=== PATIENT | male | born 1960 | race Hispanic/Latino ===

== ENCOUNTER 2018-05-06 19:49 | Emergency (ER) | payer OTHER ==
[2018-05-06 20:25] VITALS: BMI 31.1
[2018-05-06 20:29] VITALS: BP 130/73; PULSE 75; RESP 18; TEMP 98.4; O2SAT 99
--- NOTE | 2018-05-06 20:57 | ED PDOC ---
Arrival/HPI - General Chief Complaint: Lower Extremity Problem/Injury Time Seen by Provider: 05/06/18 20:33 Historian: Patient - History of Present Illness Narrative History of Present Illness (Text): 05/06/18 20:30 58 year old male, with past medical history of hypertension, presents to the Emergency department complaining of left knee discomfort since Sunday. Patient informs he was [place] his [place] vacation at [employer] [place] [place] when he stepped off the curb and hyperflexed his left knee leading to deformity and discomfort to the left leg. Patient denies hitting his head or losing consciousness. Patient denies any fever, chills, nausea, vomiting, diarrhea, abdominal pain, chest pain, shortness of breath or any other complaints. PMD: Dr. Garcia Time/Duration: < week (Sunday) Symptom Onset: Gradual Symptom Course: Unchanged Quality: Aching Activities at Onset: Light Context: Other (Vacation) Past Medical History - Provider Review Nursing Documentation Reviewed: Yes - Infectious Disease Hx of Infectious Diseases: None - Cardiac Hx Cardiac Disorders: Yes Hx Hypertension: Yes - Pulmonary Hx Respiratory Disorders: No - Neurological Hx Neurological Disorder: No - HEENT Hx HEENT Disorder: No - Renal Hx Renal Disorder: No - Endocrine/Metabolic Hx Endocrine Disorders: No - Hematological/Oncological Hx Blood Disorders: No - Integumentary Hx Dermatological Disorder: No - Musculoskeletal/Rheumatological Hx Musculoskeletal Disorders: Yes Hx Fractures: Yes Other/Comment: HX: LEFT SHOULDER"POPPED OUT OF SOCKET" ARTHROSCOPIC SURGERY TO REPAIR. HX: INTERNALDERAGMENT (LEFT KNEE). HX: STRESS FX. LEFT FOOT. HX: UMBILICAL HERNIA - Gastrointestinal Hx Gastrointestinal Disorders: Yes Hx Gastritis: Yes - Genitourinary/Gynecological Hx Genitourinary Disorders: No - Psychiatric Hx Psychophysiologic Disorder: No Hx Depression: No Hx Substance Use: No - Surgical History Hx Musculoskeletal Surgery: Yes (ARTHROSCOPIC LEFT SHOULDER"IT POPPED OUT") Other/Comment: SEVERAL CYSTS REMOVED FROM ABDOMEN - Anesthesia Hx Anesthesia: Yes Hx Anesthesia Reactions: No Hx Malignant Hyperthermia: No - Suicidal Assessment Feels Threatened In Home Enviroment: No Family/Social History - Physician Review Nursing Documentation Reviewed: Yes Family/Social History: No Known Family HX Smoking Status: Never Smoked Hx Alcohol Use: No Hx Substance Use: No Hx Substance Use Treatment: No Allergies/Home Meds Allergies/Adverse Reactions: Allergies No Known Allergies Allergy (Verified 05/15/14 08:43) Home Medications: Home Meds Medication Instructions Recorded Confirmed Azilsartan Med/Chlorthalidone 1 tab PO DAILY 05/18/17 05/06/18 [Edarbyclor 40-12.5 mg Tablet] Fenofibrate Nanocrystallized 145 mg PO DAILY 05/18/17 05/06/18 [Fenofibrate] Simvastatin 40 mg PO DAILY 05/18/17 05/06/18 amLODIPine [Norvasc] 10 mg PO DAILY 05/18/17 05/06/18 Review of Systems - Physician Review All systems were reviewed & negative as marked: Yes - Review of Systems Constitutional: Normal. absent: Fevers Eyes: Normal ENT: Normal Respiratory: Normal. absent: SOB Cardiovascular: Normal. absent: Chest Pain Gastrointestinal: Normal. absent: Abdominal Pain, Diarrhea, Nausea, Vomiting Genitourinary Male: Normal Musculoskeletal: Other (left knee and leg discomfort) Skin: Normal Neurological: Normal Endocrine: Normal Hemo/Lymphatic: Normal Psychiatric: Normal Physical Exam Vital Signs Reviewed: Yes Vital Signs Temp Pulse Resp BP Pulse Ox 05/06/18 20:28 98.4 F 75 18 130/73 99 Temperature: Afebrile Blood Pressure: Normal Pulse: Regular Respiratory Rate: Normal Appearance: Positive for: Well-Appearing, Non-Toxic, Comfortable Pain Distress: None Mental Status: Positive for: Alert and Oriented X 3 - Systems Exam Head: Present: Atraumatic, Normocephalic Pupils: Present: PERRL Extroacular Muscles: Present: EOMI Conjunctiva: Present: Normal Mouth: Present: Moist Mucous Membranes Neck: Present: Normal Range of Motion Respiratory/Chest: Present: Clear to Auscultation, Good Air Exchange. No: Respiratory Distress, Accessory Muscle Use Cardiovascular: Present: Regular Rate and Rhythm, Normal S1, S2. No: Murmurs Abdomen: No: Tenderness, Distention, Peritoneal Signs Back: Present: Normal Inspection Upper Extremity: Present: Normal Inspection. No: Cyanosis, Edema Lower Extremity: Present: Tenderness, Deformity (step off secondary to partial or complete tear of quadracep tendon. Inable to extend his left leg.). No: Edema Neurological: Present: GCS=15, CN II-XII Intact, Speech Normal Skin: Present: Warm, Dry, Normal Color. No: Rashes Psychiatric: Present: Alert, Oriented x 3, Normal Insight, Normal Concentration Medical Decision Making ED Course and Treatment: 05/06/18 21:04 Impression: 58 year old male presents to the Emergency department complaining of left knee discomfort s/p fall. Differential Diagnosis included but are not limited to: Partial or complete tear of left quadraceps tendon Plan: -- EKG -- Labs -- CXR -- Reassess and disposition Prior Visits: Notes and results from previous visits were reviewed. Progress Notes: 05/06/18 21:03 Discussed case in detail with Dr. Garcia who requests pre-operation labs, EKG, and chest xray. Dr. Garcia states he can see the patient in his office tomorrow morning at 10:00 but the patient should call first. - RAD Interpretation Radiology Orders: 05/06/18 20:58 CXR (PA/LAT) [CHEST TWO VIEWS (PA/LAT)] [RAD] Stat - EKG Interpretation EKG Interpretation (Text): 05/06/18 21:19 EKG: Ordered, reviewed, and independently interpreted the EKG. Rate : 64 BPM Rhythm : NSR Interpretation : No ST-segment elevations or depressions, no T-wave inversions, normal intervals. Interpreted by ED Physician: Yes Type: 12 lead EKG - Scribe Statement The provider has reviewed the documentation as recorded by the Scribe Luis Miguel Mercedes. All medical record entries made by the Scribe were at my direction and personally dictated by me. I have reviewed the chart and agree that the record accurately reflects my personal performance of the history, physical exam, medical decision making, and the department course for this patient. I have also personally directed, reviewed, and agree with the discharge instructions and disposition. Disposition/Present on Arrival - Present on Arrival Any Indicators Present on Arrival: No History of DVT/PE: No History of Uncontrolled Diabetes: No Urinary Catheter: No History of Decub. Ulcer: No History Surgical Site Infection Following: None - Disposition Have Diagnosis and Disposition been Completed?: Yes Diagnosis: Rupture, tendon, quadriceps Disposition: HOME/ ROUTINE Disposition Time: 21:23 Patient Plan: Discharge Condition: GOOD Discharge Instructions (ExitCare): How to Use Crutches, Knee Immobilizer (DC) Additional Instructions: Mr Grimm- Please keep the appointment with Dr Darden tomorrow so he can set you up to have the tendon repair. Best- Dr. Leonides Mensah Forms: [employer] ([employer]), WORK NOTE
[2018-05-06 22:09] LABS: BASO # 0.03 K/mm3 (0.0-2.0); BASO % 0.3 % (0.0-3.0); EOS # 0.4 (0.0-0.7); EOS % 3.5 % (1.5-5.0); GRAN # 7.39 (1.4-6.5); GRAN % 67.3 % (50.0-68.0); HEMOGLOBIN 13.2 g/dL (14.0-18.0); LYMPH # 2.3 (1.2-3.4); LYMPH % 21.4 % (22.0-35.0); MEAN CELL VOLUME 85.8 fl (80.0-105.0); MEAN CORPUSCULAR HEMOGLOBIN 29.7 pg (25.0-35.0); MEAN CORPUSCULAR HGB CONC 34.6 g/dl (31.0-37.0); MEAN PLATELET VOLUME 10.2 fl (7.0-11.0); MONO # 0.8 (0.1-0.6); MONO % 7.5 % (1.0-6.0); RBC 4.45 10^6/uL (3.5-6.1); RED CELL DISTRIBUTION WIDTH 13.8 % (11.5-14.5)
[2018-05-06 22:15] LABS: INR 1.03 (0.93-1.08); PROTHROMBIN TIME 11.7 SECONDS (9.4-12.5)
[2018-05-06 22:17] LABS: ALB/GLOB RATIO 1.6 (1.1-1.8); ALBUMIN 4.3 g/dL (3.0-4.8); ALT/SGPT 30 U/L (7-56); AST/SGOT 38 U/L (17-59); BLOOD UREA NITROGEN 25 mg/dL (7-21); CALCIUM 9.8 mg/dL (8.4-10.5); GFR AFRICAN-AMERICAN > 60; GFR NON-AFRICAN AMERICAN > 60
--- NOTE | 2018-05-07 09:03 | RAD ---
HISTORY: COMPARISON: 05/05/2017. TECHNIQUE: Chest PA and lateral FINDINGS: LINES AND TUBES: None. LUNG AND PLEURA: The lungs are well inflated. There is mild pulmonary venous congestion. No focal consolidation HEART AND MEDIASTINUM: There is mild cardiomegaly. The hilar and mediastinal contours are within normal limits. SKELETAL STRUCTURES: The bony structures are within normal limits for the patient's age. VISUALIZED UPPER ABDOMEN: Normal. OTHER FINDINGS: None. IMPRESSION: Mild cardiomegaly and pulmonary venous congestion. No active pulmonary disease.
--- NOTE | 2018-05-07 22:58 | CARD ---
APPROVED REPORT EKG Measurement Heart [id number] <Conclusion> Normal sinus rhythm Normal ECG
== END 2018-05-06 22:15 | disposition home or self-care (01) ==
LOC: ED 19:49
DX: S76.112A Strain of left quadriceps muscle, fascia and tendon, initial encounter (principal); X58.XXXA Exposure to other specified factors, initial encounter; Y92.838 Other recreation area as the place of occurrence of the external cause; I10 Essential (primary) hypertension

== ENCOUNTER 2018-12-28 07:12 | Outpatient (CLI) | payer OTHER | END 2018-12-28 07:13 | disposition home or self-care (01) | LOC: LAB 07:12 ==